=== PATIENT | male | born 2000 | race Caucasian/White ===

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

== ENCOUNTER 2021-07-08 12:07 | Emergency (ER) | payer OTHER ==
[~2021-07-08] VITALS: Ht 182.9 cm; Wt 95.3 kg
[~2021-07-08 12:07] MED LIST changes: +PROZAC20 M1 PO; +TAMIFLU75 MG PO
[2021-07-08] MEDS ORDERED: HYDROCODON-ACE1 EAC7 PO (13:01)
[2021-07-08 13:10] VITALS: BP 143/83
== END 2021-07-08 13:11 | disposition home or self-care (01) ==
LOC: M.ERS 12:07
DX: S93.402A Sprain of unspecified ligament of left ankle, initial encounter (principal); J45.909 Unspecified asthma, uncomplicated; F32.9 Major depressive disorder, single episode, unspecified; X50.1XXA Overexertion from prolonged static or awkward postures, initial encounter; Y93.44 Activity, trampolining; Y92.89 Other specified places as the place of occurrence of the external cause; Y99.8 Other external cause status

== ENCOUNTER 2021-10-03 22:04 | Emergency (ER) | payer OTHER ==
[~2021-10-03] VITALS: Ht 182.9 cm; Wt 93.0 kg
[~2021-10-03 22:04] MED LIST changes: +HYDROCODON-ACE1 EAC7 PO
[2021-10-03 22:50] VITALS: BP 131/70
== END 2021-10-03 22:51 | disposition home or self-care (01) ==
LOC: M.ERS 22:04
DX: S67.190A Crushing injury of right index finger, initial encounter (principal); J45.909 Unspecified asthma, uncomplicated; W23.0XXA Caught, crushed, jammed, or pinched between moving objects, initial encounter; Y93.89 Activity, other specified; Y92.89 Other specified places as the place of occurrence of the external cause; Y99.9 Unspecified external cause status